=== PATIENT | female | born 1995 | race Caucasian/White ===

== ENCOUNTER 2020-05-03 17:54 | Inpatient (IN) | payer OTHER, SELFPAY ==
[2020-05-03] VITALS (13 sets, daily range): BP systolic 102–132; BP diastolic 61–82; PULSE 95–115; TEMP 37.1; BMI 37.5
[2020-05-03 18:46] LABS: Basophils Percent Auto 0.2 % (0.2-1.2); Eosinophils Absolute Auto 0.1 K/mm3 (0-0.3); Eosinophils Percent Auto 0.8 % (0-4.4); Hematocrit 30.8 % (37.0-47.0); Hemoglobin 10.2 g/dL (12.0-15.0); Immature Granulocyte Absolute 0.07 K/mm3 (0.00-0.031); Immature Granulocyte Percent A 0.7 % (0-0.5); Lymphocytes Absolute Auto 1.69 K/mm3 (0.9-3.2); Lymphocytes Percent Auto 16.6 % (18.3-44.2); Mean Corpuscular HGB Conc 33.1 g/dl (32-36); Mean Corpuscular Hemoglobin 27.1 pg (26-34); Mean Corpuscular Volume 81.7 fl (80-100); Mean Platelet Volume 11.1 fl (7.4-10.4); Monocytes Absolute Auto 0.8 K/mm3 (0.1-0.6); Monocytes Percent Auto 7.7 % (2.6-8.5); Neutrophils Absolute Auto 7.5 K/mm3 (1.3-6.7); Platelet Count Result 261 k/mm3 (150-375); Red Blood Count 3.77 M/mm3 (4.2-5.4); White Blood Count 10.2 K/mm3 (4.5-10.0)
--- NOTE | 2020-05-03 18:46 | LDADM ---
This patient, Savanna Ng, was admitted to Labor/Delivery/Recovery 106 on 05/03/20 at 17:54. Plans for labor, pain management and were discussed with patient. Patient/family oriented to hospital policies and general routines including ID bracelet, bed and alarms, visiting hours, pain management, procedures, bathroom and other care routines, personal items, smoking policy, room service/diet and guest tray routines, security routines, and visiting hours. Patient/Family are encouraged to report perceived risks to care and to ask questions if they do not understand what they are told or what they should do. See OBIX for further documentation.
[2020-05-03 18:57] LABS: Alanine Aminotransferase 15 U/L (4-35); Albumin Level 3.5 g/dL (3.5-5.1); Alkaline Phosphatase 159 U/L (38-126); Aspartate Amino Transferase 22 U/L (14-36); Bilirubin,Total 0.7 mg/dL (0.2-1.3); Blood Urea Nitrogen 10 mg/dL (7-17); Calcium 8.9 mg/dL (8.4-10.2); Carbon Dioxide 18 mmol/L (22-30); Chloride 106 mmol/L (98-107); Estimated CRCL calculation 148 ml/min; Estimated Glomerular Filt Rate > 60; Glucose 95 mg/dL (65-105); Potassium 3.9 mmol/L (3.4-5.0); Sodium 133 mmol/L (137-145); Uric Acid 4.2 mg/dL (2.5-7.5)
--- NOTE | 2020-05-03 19:57 | WPDANESEPP ---
Anes - Eval Pre Procedure Procedure: labor epidural Date/Time: 05/03/20 19:57 Surgeon: miranda Pre Op Diagnosis: Induction of Labor Patient Data Age: 24 Gender: F Height: 1.66 m Weight: 103.75 kg Last Vital Signs Temp 37.1 C 05/03/20 18:42 Pulse 97 05/03/20 19:45 BP 119/73 05/03/20 19:45 Allergies Allergy/AdvReac Type Severity Reaction Status Date / Time No Known Allergies Allergy Verified 04/11/20 14:36 Home Medications Medication Instructions Recorded Confirmed Type PNV cmb#95-ferrous fumarate-FA 1 tablet PO DAILY 04/11/20 04/11/20 History [] Laboratory Tests 05/03/20 05/03/20 05/03/20 18:38 18:38 18:38 WBC 10.2 K/mm3 H K/mm3 (4.5-10.0) RBC 3.77 M/mm3 L M/mm3 (4.2-5.4) Hgb 10.2 g/dL L g/dL (12.0-15.0) Hct 30.8 % L % (37.0-47.0) MCV 81.7 fl fl (80-100) MCH 27.1 pg pg (26-34) MCHC 33.1 g/dl g/dl (32-36) RDW 14.0 % % (11.5-14.5) Plt Count 261 k/mm3 k/mm3 (150-375) MPV 11.1 fl H fl (7.4-10.4) Immature Gran % (Auto) 0.7 % H % (0-0.5) Neut % (Auto) 74.0 % H % (45.5-73.1) Lymph % (Auto) 16.6 % L % (18.3-44.2) [place] % (Auto) 7.7 % % (2.6-8.5) Eos % (Auto) 0.8 % % (0-4.4) Baso % (Auto) 0.2 % % (0.2-1.2) Lymph # (Auto) 1.69 K/mm3 K/mm3 (0.9-3.2) [place] # (Auto) 0.8 K/mm3 H K/mm3 (0.1-0.6) Eos # (Auto) 0.1 K/mm3 K/mm3 (0-0.3) Baso # (Auto) 0.0 K/mm3 K/mm3 (0.0-0.1) Abs Immat Gran (auto) 0.07 K/mm3 H K/mm3 (0.00-0.031) Absolute Neuts (auto) 7.5 K/mm3 H K/mm3 (1.3-6.7) Absolute Nucleated RBC 0.0 K/mm3 K/mm3 (0.0-0.012) Nucleated RBC % 0.0 % % (0.0-0.2) Sodium Potassium Chloride Carbon Dioxide BUN Creatinine Estim Creat Clear Calc Estimated GFR Glucose Uric Acid Calcium Total Bilirubin AST ALT Alkaline Phosphatase Total Protein Albumin RPR Pending Blood Type O Positive Antibody Screen Negative 05/03/20 18:38 WBC RBC Hgb Hct MCV MCH MCHC RDW Plt Count MPV Immature Gran % (Auto) Neut % (Auto) Lymph % (Auto) [place] % (Auto) Eos % (Auto) Baso % (Auto) Lymph # (Auto) [place] # (Auto) Eos # (Auto) Baso # (Auto) Abs Immat Gran (auto) Absolute Neuts (auto) Absolute Nucleated RBC Nucleated RBC % Sodium 133 mmol/L L mmol/L (137-145) Potassium 3.9 mmol/L mmol/L (3.4-5.0) Chloride 106 mmol/L mmol/L (98-107) Carbon Dioxide 18 mmol/L L mmol/L (22-30) BUN 10 mg/dL mg/dL (7-17) Creatinine 0.60 mg/dL L mg/dL (0.7-1.0) Estim Creat Clear Calc 148 ml/min ml/min Estimated GFR > 60 (59 - ) Glucose 95 mg/dL mg/dL (65-105) Uric Acid 4.2 mg/dL mg/dL (2.5-7.5) Calcium 8.9 mg/dL mg/dL (8.4-10.2) Total Bilirubin 0.7 mg/dL mg/dL (0.2-1.3) AST 22 U/L U/L (14-36) ALT 15 U/L U/L (4-35) Alkaline Phosphatase 159 U/L H U/L (38-126) Total Protein 7.0 g/dL g/dL (6.3-8.2) Albumin 3.5 g/dL g/dL (3.5-5.1) RPR Blood Type Antibody Screen Patient hx anesthesia problems: none Family hx anesthesia problems: none [facility] Past Medical History Medical History (Updated 05/03/20 @ 19:58 by Simin Romero CRNA) PIH ( induced hypertension) Family History Family History (Updated 04/11/20 @ 14:38 by Lucia Cox RN) Other Alzheimers disease Cerebrovascular accident Diabetes mellitus Heart disease High cholesterol
[2020-05-03] MEDS: LACTATED RINGERS 1,000 ML 125 ML IV CONT ×2 (20:01→23:59)
[2020-05-03] MEDS: AMPICILLIN 2 GM/NS 100 ML 2 GM/100 ML BAG IVPB (20:01)
[2020-05-04] VITALS (171 sets, daily range): BP systolic 76–143; BP diastolic 42–101; PULSE 53–177; RESP 12; TEMP 36.4–36.9; O2SAT 74–100
[2020-05-04] MEDS: LACTATED RINGERS 1,000 ML 125 ML IV CONT (01:25)
[2020-05-04] MEDS: ONDANSETRON INJ 4 MG/2 ML VIAL IV PUSH (02:26)
[2020-05-04] MEDS: OXYTOCIN 30 UNITS/NS 500 ML 30 UNITS/500 ML BAG IV CONT (03:44)
[2020-05-04] MEDS: AMPICILLIN 1 GM/NS 50 ML 1 GM/50 ML BAG IVPB ×3 (03:59→08:08)
[2020-05-04 07:12] LABS: Rapid Plasma Reagin Non-Reactive (NonReactive)
--- NOTE | 2020-05-04 08:45 | WPDOBADMIT ---
Obstetrics - Admit Note Admission Note: record reviewed. Additions to the history and/or subsequent changes in the physical findings follow. 24 y/o at 39 1/7 weeks here for induction of labor. Cervidil was placed overnight. She had SROM around 0100 with meconium-stained fluid. Now comfortable with epidural. Receiving oxytocin. essentially uncompliated. GBS pos. AVSS NST reactive TOCO: contractions every 2-4 min ABD soft, nontender, gravid, vertex EXT nontender Cervix 6-7/90/0 A: IUP at term. P: Continue labor. Anticipate . Pediatrics aware of meconium.
--- NOTE | 2020-05-04 09:28 | PM.OBPRVD ---
OB - Delivery Note Procedure Delivery date: 05/04/20 Procedure: Induction of labor with Induction method: per pitocin protocol and other (cervidil) Delivery monitor: external FHT, external uterine and internal uterine Route of delivery: Laceration description: None Specimen: Yes (cord blood) Estimated blood loss (mL): 105 Anesthesia type: Epidural Disposition: PACU Complications: None Narrative: 24 y/o at 39 1/7 weeks gestation who presented to the hospital for induction of labor. Cervidil was placed overnight. She had SROM of meconium-stained fluid. Oxytocin was administered intravenously. She received an epidural for pain control. Her labor progressed and her cervix dilated completely. She pushed with good effort and delivered the infant's head to the perineum. A loose nuchal cord was reduced and the body delivered. The nose and mouth were bulb suctioned. After a delay, the cord was clamped and cut. The infant was handed off the field. Cord blood was collected. The placenta delivered spontaneously and was grossly normal in appearance. The usual 3 vessel cord was noted. The perineum was intact. Needle and instrument counts were correct. The patient was taken to recovery room in stable condition. The infant went to the nursery in stable condition. I was present and scrubbed for the entire delivery. [place] Baby Date of : 05/04/20 Time of : 09:17 Weeks of gestation at delivery: 39 Infant gender: Male Weight (pounds): 7 Weight (ounces): 9 presentation: vertex position: Left Occiput Anterior Placenta delivery description: Spontaneous and Normal Configuration cord vessel description: 3 Vessels and Nuchal Cord score one minute: 8 score five minutes: 9
--- NOTE | 2020-05-04 09:34 | PM.OBDSVD ---
DS: Admitting Diagnosis Admitting Diagnosis Admitting Diagnosis: IUP at term GBS colonization <Júnior Law MD - Last Filed: 05/04/20 09:35> DS: Discharge Diagnosis Discharge Diagnosis (1) (normal spontaneous vaginal delivery): Code(s): O80 - Encounter for full-term uncomplicated delivery <Júnior Law MD - Last Filed: 05/04/20 09:35> Status: Acute <Júnior Law MD - Last Filed: 05/04/20 09:35> (2) GBS (group B Streptococcus carrier), +RV culture, currently : Code(s): O99.820 - Streptococcus B carrier state complicating <Júnior Law MD - Last Filed: 05/04/20 09:35> Status: Acute <Júnior Law MD - Last Filed: 05/04/20 09:35> OB - DS: Summary OB Procedures : None <Filiberto Gomez MD - Last Filed: 05/06/20 07:20> OB Procedures Intrapartum: Spontaneous Vag Delivery <Filiberto Gomez MD - Last Filed: 05/06/20 07:20> OB Procedures: : None <Filiberto Gomez MD - Last Filed: 05/06/20 07:20> Peripartum Data Delivery Method: Natural Vaginal <Filiberto Gomez MD - Last Filed: 05/06/20 07:20> Laceration description: None <Filiberto Gomez MD - Last Filed: 05/06/20 07:20> complications: none <Filiberto Gomez MD - Last Filed: 05/06/20 07:20> Status at Discharge Functional status at discharge: independent ambulation <Filiberto Gomez MD - Last Filed: 05/06/20 07:20> Overall status at discharge: patient is back to baseline <Filiberto Gomez MD - Last Filed: 05/06/20 07:20> Time Spent with Patient Time attestation: Total time spent providing and/or coordinating discharge services: <Júnior Law MD - Last Filed: 05/04/20 09:35> Time spent: Less than 30 minutes <Filiberto Gomez MD - Last Filed: 05/06/20 07:20> DS: Data Data Completed and Pending Labs on day of discharge: Labs from last 24 hours 05/03/20 05/03/20 05/03/20 18:38 18:38 18:38 WBC RBC Hgb Hct MCV MCH MCHC RDW Plt Count MPV Immature Gran % (Auto) Neut % (Auto) Lymph % (Auto) [place] % (Auto) Eos % (Auto) Baso % (Auto) Lymph # (Auto) [place] # (Auto) Eos # (Auto) Baso # (Auto) Abs Immat Gran (auto) Absolute Neuts (auto) Absolute Nucleated RBC Nucleated RBC % Sodium 133 L Potassium 3.9 Chloride 106 Carbon Dioxide 18 L BUN 10 Creatinine 0.60 L Estim Creat Clear Calc 148 Estimated GFR > 60 Glucose 95 Uric Acid 4.2 Calcium 8.9 Total Bilirubin 0.7 AST 22 ALT 15 Alkaline Phosphatase 159 H Total Protein 7.0 Albumin 3.5 RPR Non-reactive Blood Type O Positive Antibody Screen Negative 05/03/20 18:38 WBC 10.2 H RBC 3.77 L Hgb 10.2 L Hct 30.8 L MCV 81.7 MCH 27.1 MCHC 33.1 RDW 14.0 Plt Count 261 MPV 11.1 H Immature Gran % (Auto) 0.7 H Neut % (Auto) 74.0 H Lymph % (Auto) 16.6 L [place] % (Auto) 7.7 Eos % (Auto) 0.8 Baso % (Auto) 0.2 Lymph # (Auto) 1.69 [place] # (Auto) 0.8 H Eos # (Auto) 0.1 Baso # (Auto) 0.0 Abs Immat Gran (auto) 0.07 H Absolute Neuts (auto) 7.5 H Absolute Nucleated RBC 0.0 Nucleated RBC % 0.0 Sodium Potassium Chloride Carbon Dioxide BUN Creatinine Estim Creat Clear Calc Estimated GFR Glucose Uric Acid Calcium Total Bilirubin AST ALT Alkaline Phosphatase Total Protein Albumin RPR Blood Type Antibody Screen <Júnior Law MD - Last Filed: 05/04/20 09:35> Discharge Plan Discharge Attending physician on discharge: Júnior Law <Júnior Law MD - Last Filed: 05/04/20 09:35> Júnior Law <Filiberto Gomez MD - Last Filed: 05/06/20 07:20> Discharging Clinician: Júnior Law <Júnior Law MD - Last Filed: 05/04/20 09:35> Júnior Law <Filiberto Mullen
[2020-05-04] MEDS: OXYTOCIN 30 UNITS/NS 500 ML 30 UNITS/500 ML BAG 125 UNITS IV CONT (10:12)
--- NOTE | 2020-05-04 19:42 | OBPPTRN ---
Patient transferred to post room #288 via W/C. Support person present. Oriented to unit, room, information board, rooming in, admission packet and security measures. Patient verbalizes understanding.
[2020-05-05 05:42] LABS: Hematocrit 29.9 % (37.0-47.0); Hemoglobin 9.7 g/dL (12.0-15.0)
[2020-05-05 07:15] VITALS: BP 102/67; PULSE 88; RESP 14; TEMP 36.6; O2SAT 99
--- NOTE | 2020-05-05 07:21 | WPDANLDPN2 ---
Anes-Prog Note L&D Date/Time: 05/05/20 07:21 Comfortable throughout: labor and delivery Neuraxial method: epidural Epidural/Spinal procedure site: clean & non-tender Neuro status: Neuro function grossly intact. Cardiovascular status: normal Respiratory status: normal Airway patency: baseline Mental status: baseline Post-Op hydration status: normal Vital Signs: Last Vital Signs Temp 36.9 C 05/04/20 20:10 Pulse 87 05/04/20 20:10 Resp 12 05/04/20 20:10 BP 107/71 05/04/20 20:10 Pulse Ox 100 05/04/20 09:49 I/O: Intake & Output 05/04/20 05/04/20 05/05/20 15:59 23:59 07:59 Intake Total 1050 Output Total 210 Balance 840 Post-procedural complaints: none Patient feedback: Patient satisfied with anesthetic care.
[2020-05-05] MEDS: LANOLIN (LANSINOH) 7.5 GM CREAM 1 APPLIC TOPICAL (07:35)
[2020-05-05] MEDS: POLYSACCHARIDE IRON COMPLEX 150 MG CAPSULE PO ×2 (07:35→17:20)
[2020-05-05] MEDS: MULTIVIT/MIN/PREN/FOL AC/IRON TABLET 1 TAB PO (07:35)
[2020-05-05] MEDS: DOCUSATE SODIUM 100 MG CAPSULE PO ×2 (07:35→17:20)
--- NOTE | 2020-05-05 16:41 | PM.OBPNVD ---
OB - PN: Subj Subjective Date/time seen: 05/05/20 16:41 Narrative: Pain OK. Would like circumcision for son. OB - PN: Obj Data Labs CBC & Chem 7: 05/05/20 04:21 05/03/20 18:38 Labs: Laboratory Results - last 24 hr 05/05/20 04:21 Hgb 9.7 L Hct 29.9 L OB - PN A/P Plan Comments: A: PPD#1, doing well. P: Routine care. Reviewed circumcision. Home tomorrow. Exam Psych: Other: AVSS ABD soft, nontender, fundus firm EXT nontender
[2020-05-05 20:10] VITALS: BP 119/81; PULSE 97; RESP 12; TEMP 37.1
--- NOTE | 2020-05-06 09:30 | PC.NURSE ---
Patient viewed the discharge video Mother & Baby Care, The First Two Weeks . Patient was given the opportunity and encouraged to ask questions. Patient verbalized understanding of information shared and has been given the mother/baby guide for home reference.
[2020-05-06 10:16] VITALS: BP 123/69; PULSE 95; RESP 18; TEMP 37.1; O2SAT 100
[2020-05-06] MEDS: POLYSACCHARIDE IRON COMPLEX 150 MG CAPSULE PO (10:23)
[2020-05-06] MEDS: MULTIVIT/MIN/PREN/FOL AC/IRON TABLET 1 TAB PO (10:23)
[2020-05-06] MEDS: DOCUSATE SODIUM 100 MG CAPSULE PO (10:24)
[2020-05-09 08:17] VITALS: BP 109/74; PULSE 86; RESP 86; TEMP 37; O2SAT 100
== END 2020-05-06 11:54 | disposition home or self-care (01) | DRG 807 ==
LOC: ANHLDR 05-04 09:35 → ANHOB2 05-06 09:44 → ANHLDR 05-09 10:51 → ANHOB2 05-09 10:51
PROVIDERS: Admitting Provider Obstetrics & Gynecology; Visit Provider Student in an Organized Health Care Education/Training Program
DX: O99.824 Streptococcus B carrier state complicating childbirth (principal); Z37.0 Single live birth; Z3A.39 39 weeks gestation of pregnancy; O77.0 Labor and delivery complicated by meconium in amniotic fluid; O13.4 Gestational [pregnancy-induced] hypertension without significant proteinuria, complicating childbirth; O36.8330 Maternal care for abnormalities of the fetal heart rate or rhythm, third trimester, not applicable or unspecified; O69.81X0 Labor and delivery complicated by cord around neck, without compression, not applicable or unspecified
CPT/HCPCS: 36415; 80053; 84550; 85014; 85018; 85025; 86592; 86850; 86900; 86901; 88307; A9270; J0290; J2405; J2590; J2795; J7120

== ENCOUNTER 2021-09-12 13:25 | Outpatient (RCR) | payer OTHER, SELFPAY ==
[2021-09-12 13:54] VITALS: BP 116/63; PULSE 95
== END 2021-11-09 09:29 | disposition home or self-care (01) ==
LOC: ANHOBOP 13:25
PROVIDERS: Visit Provider Obstetrics & Gynecology
DX: O36.8130 Decreased fetal movements, third trimester, not applicable or unspecified (principal); Z3A.36 36 weeks gestation of pregnancy
CPT/HCPCS: 59025

== ENCOUNTER 2021-10-03 05:50 | Inpatient (IN) | payer OTHER, SELFPAY ==
[2021-10-03] VITALS (146 sets, daily range): BP systolic 84–177; BP diastolic 33–160; PULSE 26–181; RESP 18–24; TEMP 36.4–37.1; O2SAT 76–100; BMI 40.5
[2021-10-03 06:48] LABS: Basophils Percent Auto 0.2 % (0.2-1.2); Eosinophils Absolute Auto 0.1 K/mm3 (0-0.3); Eosinophils Percent Auto 0.7 % (0-4.4); Hematocrit 32.2 % (37.0-47.0); Hemoglobin 10.4 g/dL (12.0-15.0); Immature Granulocyte Absolute 0.09 K/mm3 (0.00-0.031); Lymphocytes Absolute Auto 1.95 K/mm3 (0.9-3.2); Lymphocytes Percent Auto 21.9 % (18.3-44.2); Mean Corpuscular HGB Conc 32.3 g/dl (32-36); Mean Corpuscular Hemoglobin 26.4 pg (26-34); Mean Corpuscular Volume 81.7 fl (80-100); Mean Platelet Volume 10.8 fl (7.4-10.4); Monocytes Absolute Auto 0.7 K/mm3 (0.1-0.6); Monocytes Percent Auto 8.2 % (2.6-8.5); Neutrophils Absolute Auto 6.1 K/mm3 (1.3-6.7); Platelet Count Result 243 k/mm3 (150-375); Red Blood Count 3.94 M/mm3 (4.2-5.4); Red Cell Distribution Width 14.7 % (11.5-14.5); White Blood Count 8.9 K/mm3 (4.5-10.0)
[2021-10-03] MEDS: LACTATED RINGERS 1,000 ML 125 ML IV CONT (06:49)
[2021-10-03] MEDS: AMPICILLIN 2 GM/NS 100 ML 2 GM/100 ML BAG IVPB (06:50)
[2021-10-03] MEDS: OXYTOCIN 30 UNITS/NS 500 ML 30 UNITS/500 ML BAG IV CONT (07:01)
--- NOTE | 2021-10-03 07:11 | LDADM ---
This patient, Savanna Ng, was admitted to Labor/Delivery/Recovery 104 on 10/03/21 at 05:50. Plans for labor, pain management and were discussed with patient. Patient/family oriented to hospital policies and general routines including ID bracelet, bed and alarms, visiting hours, pain management, procedures, bathroom and other care routines, personal items, smoking policy, room service/diet and guest tray routines, infant security routines, and visiting hours. Patient/Family are encouraged to report perceived risks to care and to ask questions if they do not understand what they are told or what they should do. See OBIX for further documentation.
--- NOTE | 2021-10-03 08:41 | WPDOBADMIT ---
Obstetrics - Admit Note Admission Note: record reviewed. Additions to the history and/or subsequent changes in the physical findings follow. 26 y/o at 39 2/7 weeks here for induction of labor. GBS pos. AVSS NST reactive, Category I TOCO: irregular contractions ABD soft, nontender, gravid, vertex EXT nontender Cervix 3-4/50/-2. AROM with clear fluid. Vertex. A; IUP at term with favorable cervix, desiring induction of labor. GBS pos. P: Oxytocin. Ampicillin. Anticipate .
[2021-10-03] MEDS: AMPICILLIN 1 GM/NS 50 ML 1 GM/50 ML BAG IVPB ×3 (11:01→19:14)
--- NOTE | 2021-10-03 12:57 | PM.OBPNLAB ---
Pain Control Date/time seen: 10/03/21 12:57 Feeling more contractions. Pelvic Exam Dilation (cm): 4 Effacement (%): 80 station: -2 Contractions Contraction frequency: 3 Contraction pattern: Regular Contraction intensity: Moderate Status status: Category l Assessment and Plan Pitocin rate (mU/min): 18 Plan: continuous present management
[2021-10-03] MEDS: LACTATED RINGERS 1,000 ML 999 ML IV CONT (13:57)
--- NOTE | 2021-10-03 15:02 | WPDANESEPPF ---
Anes - Initial Pre Proc Eval Procedure: labor epidural Date/Time: 10/03/21 15:02 Surgeon: Júnior Law MD Pre Op Diagnosis: labor pain Pre Op Diagnosis: IOL Patient Data Age: 26 Gender: F Height: 1.65 m Weight: 110.5 kg Last Vital Signs Temp 36.8 C 10/03/21 12:57 Pulse 100 10/03/21 15:02 BP 106/62 10/03/21 15:02 Pulse Ox 99 10/03/21 15:00 Allergies Allergy/AdvReac Type Severity Reaction Status Date / Time No Known Allergies Allergy Verified 09/12/21 13:42 Home Medications Medication Instructions Recorded Confirmed Type PNV cmb#95-ferrous fumarate-FA 1 tablet PO DAILY 04/11/20 10/03/21 History [] Laboratory Tests 10/03/21 10/03/21 10/03/21 06:25 06:26 06:26 WBC 8.9 K/mm3 K/mm3 (4.5-10.0) RBC 3.94 M/mm3 L M/mm3 (4.2-5.4) Hgb 10.4 g/dL L g/dL (12.0-15.0) Hct 32.2 % L % (37.0-47.0) MCV 81.7 fl fl (80-100) MCH 26.4 pg pg (26-34) MCHC 32.3 g/dl g/dl (32-36) RDW 14.7 % H % (11.5-14.5) Plt Count 243 k/mm3 k/mm3 (150-375) MPV 10.8 fl H fl (7.4-10.4) Immature Gran % (Auto) 1.0 % H % (0-0.5) Neut % (Auto) 68.0 % % (45.5-73.1) Lymph % (Auto) 21.9 % % (18.3-44.2) [place] % (Auto) 8.2 % % (2.6-8.5) Eos % (Auto) 0.7 % % (0-4.4) Baso % (Auto) 0.2 % % (0.2-1.2) Lymph # (Auto) 1.95 K/mm3 K/mm3 (0.9-3.2) [place] # (Auto) 0.7 K/mm3 H K/mm3 (0.1-0.6) Eos # (Auto) 0.1 K/mm3 K/mm3 (0-0.3) Baso # (Auto) 0.0 K/mm3 K/mm3 (0.0-0.1) Abs Immat Gran (auto) 0.09 K/mm3 H K/mm3 (0.00-0.031) Absolute Neuts (auto) 6.1 K/mm3 K/mm3 (1.3-6.7) Absolute Nucleated RBC 0.0 K/mm3 K/mm3 (0.0-0.012) Nucleated RBC % 0.0 % % (0.0-0.2) RPR Pending Blood Type O Positive Antibody Screen Negative Patient hx anesthesia problems: none Family hx anesthesia problems: none Results Review: All pre-operative results and documents have been reviewed as part of the pre-operative evaluation. [facility] Past Medical History Medical History (Updated 05/04/20 @ 09:35 by Júnior Law MD) PIH ( induced hypertension) Family History Family History (Updated 09/12/21 @ 13:44 by Jorge Luis Salinas RN) Mother Alzheimers disease Heart disease Cerebrovascular accident Hx of brain surgery Seizure Father Diabetes mellitus Heart disease High cholesterol Hypertension Social History Social History Smoking status: Never smoker Second hand tobacco smoke exposure: No Substance use: never Gender identity (if verbalized by the patient): Female Spiritual care concerns: No Anes - Eval Final PreProcedure Day of Procedure 10/03/21 15:02 Patient weight: morbidly obese ASA classification: III Anesthesia type and monitoring: regional epidural and standard monitoring Results Review: All pre-operative results and documents have been reviewed as part of the pre-operative evaluation. Informed Consent: The patient's anesthetic plan and its attendant risks and benefits were discussed with the patient/family/POA. Questions were solicited and answers provided to the satisfaction of the patient/family/POA.
--- NOTE | 2021-10-03 16:42 | PM.OBPNLAB ---
Pain Control Date/time seen: 10/03/21 16:42 Comments: Comfortable with epidural. Pelvic Exam Dilation (cm): 5 Effacement (%): 80 station: -2 Contractions Contraction frequency: 3 Contraction pattern: Regular Contraction intensity: Moderate Status status: Category l Assessment and Plan Pitocin rate (mU/min): 24 Plan: continuous present management
--- NOTE | 2021-10-03 20:04 | PM.OBPRVD ---
OB - Delivery Note Procedure Delivery date: 10/03/21 Procedure: Induction of labor with Intrapartal events: None Induction method: AROM and per pitocin protocol Delivery monitor: external FHT, external uterine and internal uterine Route of delivery: Laceration Description: None Specimen: Yes (cord blood) Quantitative Blood Loss (ml): 180 Anesthesia type: Epidural Disposition: PACU Complications: None Narrative: 26 y/o at 39 2/7 weeks gestation who presented to the hospital for induction of labor. She received ampicillin for GBS colonization. Oxytocin was administered intravenously. Amniotomy was performed with return of clear fluid. She received an epidural for pain control. Her labor progressed and her cervix dilated completely. She pushed with good effort and delivered the infant's head to the perineum, followed by the body. The nose and mouth were bulb suctioned. After a delay, the cord was clamped and cut. The was handed off the field. Cord blood was collected. The placenta delivered spontaneously and was grossly normal in appearance. The usual 3 vessel cord was noted. There were no lacerations. Needle and instrument counts were correct. The patient was taken to recovery room in stable condition. The infant went to the nursery in stable condition. I was present and scrubbed for the entire delivery. [place] Baby Date of : 10/03/21 Time of : 19:48 Weeks of gestation at delivery: 39 Infant gender: Female Weight (pounds): 7 Weight (ounces): 1 presentation: vertex position: Left Occiput Anterior Placenta delivery description: Spontaneous and Normal Configuration cord vessel description: 3 Vessels and Delayed Cord Clamping score one minute: 9 score five minutes: 9
--- NOTE | 2021-10-03 20:07 | PM.OBDSVD ---
DS: Admitting Diagnosis Discharge Date 10/05/21 Admitting Diagnosis IUP at 39 2/7 weeks GBS colonization DS: Discharge Diagnosis Discharge Diagnosis (1) GBS (group B Streptococcus carrier), +RV culture, currently : Code(s): O99.820 - Streptococcus B carrier state complicating Status: Acute (2) (normal spontaneous vaginal delivery): Code(s): O80 - Encounter for full-term uncomplicated delivery Status: Acute OB - DS: Summary OB Procedures : None OB Procedures Intrapartum: Spontaneous Vag Delivery OB Procedures: : None DS: Data Data Completed and Pending Labs on day of discharge: Labs from last 24 hours 10/03/21 10/03/21 10/03/21 06:26 06:26 06:25 WBC 8.9 RBC 3.94 L Hgb 10.4 L Hct 32.2 L MCV 81.7 MCH 26.4 MCHC 32.3 RDW 14.7 H Plt Count 243 MPV 10.8 H Immature Gran % (Auto) 1.0 H Neut % (Auto) 68.0 Lymph % (Auto) 21.9 [place] % (Auto) 8.2 Eos % (Auto) 0.7 Baso % (Auto) 0.2 Lymph # (Auto) 1.95 [place] # (Auto) 0.7 H Eos # (Auto) 0.1 Baso # (Auto) 0.0 Abs Immat Gran (auto) 0.09 H Absolute Neuts (auto) 6.1 Absolute Nucleated RBC 0.0 Nucleated RBC % 0.0 RPR Pending Blood Type O Positive Antibody Screen Negative Discharge Plan Discharge Attending physician on discharge: Júnior Law Consulting providers: Wesley Vo Discharging Clinician: Júnior Law Patient Disposition: Home, Self-Care Activity: pelvic rest Diet: regular Discharge Instructions: Education: Mom and Baby Guide Given to: Mother Follow-Up: Call your delivering provider's office for an appointment to be seen in: 4 Weeks [facility]. Appointment Date/Time: October 06, 2021 at 10:00 am What to expect at your follow-up visit: Blood Pressure Check Call [phone] if you are unable to keep your appointment time. BREAST CARE: * Wear a snug supportive bra. * For engorgement discomfort: Breast Feeding: * Apply warm moist washcloths * Express milk as needed to relieve engorgement * Wear loose clothing Bottle Feeding: * May apply ice packs * For sore nipples: * Identify correct latch-on * Apply warm moist washcloths before and after nursing * Air dry nipples after nursing * May apply Lansinoh cream to nipples PERINEAL CARE: * Until bleeding stops, use your li bottle after urinating * Change your pad frequently throughout the day * You may take sitz baths several times a day (fill your bathtub with warm water and soak for 20 minutes.) Do NOT bathe in the water * No tub baths until seen by your physician - You may shower ACTIVITY: * Rest as much as possible. * Do not exercise or lift anything heavier than your baby (such as laundry or other children.) * Avoid stairs or driving as much as possible. * Do not put anything into the vagina. No douching, tampons, or sexual activity until seen by physician. NOTIFY PHYSICIAN IF YOU HAVE ANY QUESTIONS OR IF ANY OF THE FOLLOWING SYMPTOMS OCCUR: * If your perineum becomes red, swollen, or more painful than what you have experienced in the hospital. * If your vaginal bleeding becomes foul smelling. * If your vaginal bleeding becomes more heavy than a period or if your bleeding changes from pink to bright red. However, you may pass an occasional walnut-sized clot once or twice for the first week . * If you experience a sharp, shooting pain in you calves. * If you discover a hard, reddened area on your breast or if you experience flu-like symptoms. * If you have a fever of 100.4 or greater DIET: * Eat regular, well-balanced meals. * Drink plenty of fluids daily. If , drink to thirst.Call or return if temperature ab
[2021-10-03] MEDS: ACETAMINOPHEN 500 MG TABLET 1000 MG PO (20:10)
[2021-10-03] MEDS: OXYTOCIN 30 UNITS/NS 500 ML 30 UNITS/500 ML BAG 125 UNITS IV CONT (20:12)
--- NOTE | 2021-10-03 22:50 | OBPPTRN ---
Patient transferred to post room #286 via wheelchair. Support person, David, present. Oriented to unit, room, information board, rooming in, admission packet and security measures. Patient verbalizes understanding.
[2021-10-04 03:25] VITALS: BP 105/58; PULSE 90; RESP 16; TEMP 36.6; O2SAT 97
[2021-10-04 05:03] LABS: Hematocrit 30.1 % (37.0-47.0); Hemoglobin 9.9 g/dL (12.0-15.0)
[2021-10-04 07:02] LABS: Rapid Plasma Reagin Non-Reactive (NonReactive)
[2021-10-04] MEDS: IBUPROFEN 600 MG TABLET PO (08:07)
[2021-10-04 08:09] VITALS: BP 113/79; PULSE 92; RESP 14; TEMP 36.6; O2SAT 100
[2021-10-04] MEDS: MULTIVIT/MIN/PREN/FOL AC/IRON TABLET 1 TAB PO (08:09)
[2021-10-04] MEDS: POLYSACCHARIDE IRON COMPLEX 150 MG CAPSULE PO ×2 (08:09→15:48)
--- NOTE | 2021-10-04 09:28 | WPDANLDPN2 ---
Anes-Prog Note L&D Date/Time: 10/04/21 09:28 Comfortable throughout: labor and delivery Neuraxial method: epidural Epidural/Spinal procedure site: clean & non-tender Neuro status: Neuro function grossly intact. Cardiovascular status: normal Respiratory status: normal Airway patency: baseline Mental status: baseline Post-Op hydration status: normal Vital Signs: Last Vital Signs Temp 36.6 C 10/04/21 08:09 Pulse 92 10/04/21 08:09 Resp 14 10/04/21 08:09 BP 113/79 10/04/21 08:09 Pulse Ox 100 10/04/21 08:09 Pain score (VAS): 3 I/O: Intake & Output 10/03/21 10/04/21 10/04/21 23:59 07:59 15:59 Intake Total 1550 Output Total 390 Balance 1160 Post-procedural complaints: none Patient feedback: Patient satisfied with anesthetic care.
--- NOTE | 2021-10-04 12:00 | PC.NURSE ---
Mother called out for assist with feeding, reporting is sleepy and not nursing consistently. Mother states has been inconsistent with latch and feeding, reporting is frequently sleepy and on and off several times during the feeding. Infant is able to freely thrust tongue past gum ridge and flange both lips. Skin is intact on both nipples, no redness and bruising noted. Mother has flat nipples, she has been able to latch . Reviewed infant feeding cues, frequencies, duration of feedings, feeding elimination flow sheet, and signs of adequate intake. Demonstrated stimulation techniques to wake for feeding. Assisted with infant to breast. Reviewed positioning/alignment in cross cradle, holding breast in ?U? hold and guided asymmetrical latch on. Reviewed rational for each. unable latch correctly, not drawing nipple in deeply. Infant nursed sleepily with short bursts of draws, and would release latch. This feeding observed not swallowing noted. would fall sleepy while at breast, needing to be awoken to latch, repeating the same. Discussed signs of a correct latch, effective nursing and suck swallow ratio. Suggested mother stimulate while feeding to increase stimulation for milk supply, for increased intake and to assist with maintaining deep latch. Nipple care reviewed of lanolin after feedings, warm compresses as needed. Discussed the difference of effective vs ineffective feeding. Reviewed is latching with short burst of suckling, he is not feeding consistently with adequate milk transfer at this time and continues to need supplement after . Feeding options discussed, Feeding Plan is for mother to put to breast each feeding for up to 15 minutes, then pace feed supplement 20 mls and pump for 10-15 minutes. Parents are comfortable with supplementation and pumping. If begins to nurse effectively with long draws and frequent swallowing noted, may decrease supplementation and discontinue pumping. Suggested mother have LC program review director observe feeding before discontinuing supplementation. Discussed increasing supplementation as requires to satisfactions. Reviewed paced feeding and suggested to stop when is satisfied, as long as infant is having required output. With increased supplementation infant may not want to feed for 4 hours. Mother will continue to pump on infant feeding schedule and will increase session to 20 minutes if pumping every 4 hours. Instructed mother to call out for RN assistance if she is unable to latch for feeding or she has discomfort with nursing. Instructed feeding should be initiated three hours from start of last feeding or if feeding cues are noted before. Mother voiced understanding of information shared.
[2021-10-04 12:10] VITALS: BP 127/67; PULSE 88; RESP 18; TEMP 36.3; O2SAT 99
--- NOTE | 2021-10-04 13:05 | PC.NURSE ---
Breast pump provided due ineffective feeding. Instructions given on breast pump care and usage, pumping schedule, nipple care, and collection and storage of breast milk. Encouraged [id number], breast massage and manual expression to stimulate supply. Assessed patient for correct flange size, placement and draw. Patient verbalizes and demonstrates understanding of instructions. Discussed colostrum vs milk supply and mother may not see more than a few drops the first few days, milk should transition in by day 3 and she may see more volume pumped per session.
[2021-10-04 15:48] VITALS: BP 107/73; PULSE 86; RESP 16; TEMP 36.4; O2SAT 100
--- NOTE | 2021-10-04 16:50 | PM.OBPNVD ---
OB - PN: Subj Subjective Date/time seen: 10/04/21 16:50 Narrative: Pain OK. OB - PN: Obj Data Labs CBC & Chem 7: 10/04/21 03:35 Labs: Laboratory Results - last 24 hr 10/03/21 10/04/21 06:26 03:35 Hgb 9.9 L Hct 30.1 L RPR Non-reactive OB - PN A/P Plan Comments: A: PPD#1, doing well. P: Routine care. Exam Psych: Other: AVSS ABD soft, nontender, fundus firm EXT nontender
[2021-10-04 20:25] VITALS: PULSE 86; RESP 16; O2SAT 100
[2021-10-04] MEDS: ACETAMINOPHEN 325 MG TABLET 650 MG PO (20:46)
--- NOTE | 2021-10-05 07:00 | PC.NURSE ---
PT introductions made and plan of care discussed per post , pain management, breast /bottle feeding, daily care activities and pending discharge to home. PT and fob both recipients of such instructions. PT received instructions per one to one discussion, mom baby care guide and demonstrations this shift. No barriers to learning identified. PT verbalized understanding of such care.
[2021-10-05 08:05] VITALS: BP 111/77; PULSE 84; RESP 18; TEMP 36.4; O2SAT 100
--- NOTE | 2021-10-05 09:02 | PM.OBPNVD ---
OB - PN: Subj Subjective Date/time seen: 10/05/21 09:02 Narrative: Pain OK. Would like to go home. OB - PN: Obj Data Labs CBC & Chem 7: 10/04/21 03:35 OB - PN A/P Plan Comments: A: PPD#2, doing well. P: Home to f/u 6 weeks. Exam Psych: Other: AVSS ABD soft, nontender, fundus firm EXT nontender
[2021-10-05 09:30] VITALS: PULSE 84; RESP 18; O2SAT 100
--- NOTE | 2021-10-05 09:30 | PC.NURSE ---
Consult with pt., mother reports she struggles to get to latch and will then bottle feed. Infant is sleepy and not making eager attempts to latch, infant will only latch using nipple shield. Infant will eagerly nurse the first 2-3 minutes then fall asleep and release latch. has been enticed with formula, he will have a few bursts of suckling then fall asleep. has had a successful latches with bursts of suckling in the past 24 hours, all feedings is supplemented. is currently meeting outcomes for weight, output, jaundice and feeding frequencies. Mother is supplementing 30-40 mls per feeding to satisfy . Mother continues to pump after all feedings without difficulties or discomfort. Mother has a pump for home use, assisted mother with use before discharge. Mother is concerned she is only pumping drops to a few mls at this time, assured mother this is normal for the first few days, milk should transition within 4-5 days from delivery. Discussed the difference of effective vs ineffective feeding. She is is not feeding consistently with adequate milk transfer at this time and continues to need to be supplement after . Feeding plan discussed, Feeding Plan is for mother to put infant to breast each feeding for up to 15 minutes, then pace feed supplement 30-40 mls and pump for 10-15 minutes. Discussed increasing supplementation as infant requires to satisfactions. Reviewed paced feeding and suggested to stop when infant is satisfied, as long as is having required output. With increased supplementation infant may not want to feed for 4 hours. Mother will continue to pump on feeding schedule and will increase session to 20 minutes if pumping every 4 hours. If infant begins to nurse effectively with long draws and frequent swallowing noted, infant may decrease supplementation and discontinue pumping. Advised not to discontinue supplement until a pre/post feeding evaluation by infant PCP, Follow up RN or LC is completed. Mother states she feels confident to continue feeding plan at home. Reviewed transition to breast milk, signs of adequate intake, and engorgement/relief. Instructed to call ICP if intake/output less than required. Reviewed regular medications mother is taking. Information provided per Catherine. Reviewed community resources on the [facility] website and in the Mom/Baby guide. Information on outpatient services provided. Mother has no further questions at this time.
[2021-10-05] MEDS: DOCUSATE SODIUM 100 MG CAPSULE PO (09:46)
[2021-10-05] MEDS: IBUPROFEN 600 MG TABLET PO (09:46)
[2021-10-05] MEDS: ACETAMINOPHEN 325 MG TABLET 650 MG PO (09:47)
--- NOTE | 2021-10-05 11:30 | PC.NURSE ---
PT received discharge instructions per protocol and verbalized understanding.
--- NOTE | 2021-10-05 12:10 | PC.NURSE ---
PT discharged to home ambulatory accompanied by spouse and and taken to waiting car. Follow up appts confirmed
[2021-10-06 09:52] VITALS: BP 131/79; PULSE 90; RESP 20; TEMP 37.1; O2SAT 99
== END 2021-10-05 12:10 | disposition home or self-care (01) | DRG 560 ==
LOC: ANHLDR 20:08 → ANHOB2 23:00
PROVIDERS: Admitting Provider Obstetrics & Gynecology; Visit Provider Obstetrics & Gynecology
DX: O99.824 Streptococcus B carrier state complicating childbirth (principal); Z37.0 Single live birth; Z3A.39 39 weeks gestation of pregnancy
CPT/HCPCS: 36415; 85014; 85018; 85025; 86592; 86850; 86900; 86901; A9270; J0290; J2590; J2795; J7120